=== PATIENT | male | born 2000 | race Two or more races ===

== ENCOUNTER 2020-01-23 06:58 | Emergency (ER) | payer MEDICAID ==
[2020-01-23 07:18] VITALS: BP 138/83
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
[2020-01-23] MEDS ORDERED: IBUPROFEN 600 MG TABLET PO STA (07:28)
[2020-01-23] MEDS ORDERED: ACETAMINOPHEN 325 MG TABLET PO STA (07:28)
[2020-01-23] MEDS ORDERED: LIDOCAINE 2% 50 ML MDV SUBQ STA (07:28)
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
== END 2020-01-23 09:00 | disposition home or self-care (01) ==
LOC: ED 06:58
DX: S62.652A Nondisplaced fracture of middle phalanx of right middle finger, initial encounter for closed fracture (principal); S61.222A Laceration with foreign body of right middle finger without damage to nail, initial encounter; S61.214A Laceration without foreign body of right ring finger without damage to nail, initial encounter; V89.2XXA Person injured in unspecified motor-vehicle accident, traffic, initial encounter
CPT/HCPCS: 12002; 73140; 99283; 99284; A9270

== ENCOUNTER 2020-10-02 16:36 | Emergency (ER) | payer MEDICAID ==
[2020-10-02 17:23] LABS: BASOPHILS # (AUTO) 0.1 10^3/uL (0.0-0.1); BASOPHILS % (AUTO) 0.9 %; EOSINOPHILS # (AUTO) 0.1 10^3/uL (0.0-0.7); HCT - HEMATOCRIT 43.4 % (42.0-52.0); HGB - HEMOGLOBIN 14.5 g/dL (14.0-18.0); LYMPHOCYTES # (AUTO) 2.7 10^3/uL (1.5-3.5); LYMPHOCYTES % (AUTO) 31.7 %; MEAN CORPUSCULAR HEMOGLOBIN 31.2 pg (27.0-31.0); MEAN CORPUSCULAR HGB CONC 33.4 g/dL (32.0-36.0); MEAN CORPUSCULAR VOLUME 93.3 fL (80.0-94.0); MEAN PLATELET VOLUME 9.2 fL (7.4-11.4); MONOCYTES # (AUTO) 0.6 10^3/uL (0.0-1.0); MONOCYTES % (AUTO) 6.4 %; NEUTROPHILS # (AUTO) 5.1 10^3/uL (1.5-6.6); NEUTROPHILS % (AUTO) 59.8 %; PLT - PLATELET COUNT 299 10^3/uL (130-450); RED BLOOD COUNT 4.65 10^6/uL (4.70-6.10); RED CELL DISTRIBUTION WIDTH 11.8 % (12.0-15.0); WHITE BLOOD COUNT 8.6 x10^3/uL (4.8-10.8)
--- NOTE | 2020-10-02 17:27 | XRAY Report ---
PROCEDURE: Chest 1 View X-Ray INDICATIONS: Chest Pain TECHNIQUE: One view of the chest was acquired. COMPARISON: None FINDINGS: Surgical changes and devices: None. Lungs and pleura: No pleural effusions or pneumothorax. Lungs are clear. Mediastinum: Mediastinal contours appear normal. Heart size is normal. Bones and chest wall: No suspicious bony lesions. Overlying soft tissues appear unremarkable. IMPRESSION: No evidence of an acute cardiopulmonary abnormality. Reviewed by: Wallace Gonzáles DO on 10/02/2020 4:26 PM [facility] Approved by: Wallace Gonzáles DO on 10/02/2020 4:26 PM [facility] Station ID: [id number]
[2020-10-02 17:39] LABS: ALBUMIN 4.8 g/dL (3.2-5.5); ALBUMIN/GLOBULIN RATIO 1.4 (1.0-2.2); BILIRUBIN,TOTAL 0.9 mg/dL (0.2-1.0); CALCIUM 9.7 mg/dL (8.5-10.3); CREATININE 0.9 mg/dL (0.6-1.2); POTASSIUM 3.9 mmol/L (3.5-5.0); TOTAL PROTEIN 8.3 g/dL (6.7-8.2)
--- NOTE | 2020-10-02 18:32 | ED Physician Documentation ---
History of Present Illness - Stated complaint Stated Complaint: IRREGULAR HR - Chief complaint Chief Complaint: Cardiac - History obtained from History obtained from: Patient - History of Present Illness Timing: Today Pain level max: 0 Pain level now: 0 - Additonal information Additional information: Patient is a 20-year-old male who presents to the emergency department stating that he has had intermittent palpitations for the past 4 to 5 months. Worsened today. Has not been seen for this. Patient states that he drinks about 10 beers per night after he gets home from work. Denies any significant caffeine intake. No other drug use. Not on any medications. Nothing makes it better work. He is unable to describe the sensation of the palpitations other than his heart feels different. Review of Systems Ten Systems: 10 systems reviewed and negative Constitutional: denies: Fever, Chills Nose: denies: Rhinorrhea / runny nose, Congestion Throat: denies: Sore throat Cardiac: denies: Chest pain / pressure, Calf pain GI: denies: Vomiting, Diarrhea Skin: denies: Rash Musculoskeletal: denies: Neck pain, Back pain Neurologic: denies: Headache PD PAST MEDICAL HISTORY - Past Medical History Cardiovascular: None Respiratory: None Neuro: None Endocrine/Autoimmune: None GI: None : None HEENT: None Psych: None Musculoskeletal: None Derm: None - Past Surgical History Past Surgical History: No - Present Medications Home Medications: Ambulatory Orders Medication Instructions Recorded Confirmed Hydrocodone/Acetaminophen [[place] 1 each PO Q6H PRN #12 tablet 01/23/20 5-325 Tablet] Ibuprofen [Motrin] 600 mg PO TID PRN #25 tab 01/23/20 - Allergies Allergies/Adverse Reactions: Allergies Allergy/AdvReac Type Severity Reaction Status Date / Time No Known Drug Allergies Allergy Verified 10/02/20 16:52 - Social History Does the pt smoke?: Yes Smoking Status: Current every day smoker Does the pt drink ETOH?: Yes Does the pt have substance abuse?: No - Immunizations Immunizations are current?: No Immunizations: TDAP >10years/unknown - POLST Patient has POLST: No PD ED PE NORMAL - Vitals Vital signs reviewed: Yes - General General: Alert and oriented X 3, No acute distress - HEENT HEENT: Moist mucous membranes - Neck Neck: Supple, no meningeal sign - Cardiac Cardiac: RRR, Strong equal pulses - Respiratory Respiratory: No respiratory distress, Clear bilaterally - Abdomen Abdomen: Soft, Non tender, Non distended - Derm Derm: Warm and dry - Extremities Extremities: No edema, No calf tenderness / cord - Neuro Neuro: Alert and oriented X 3 - Psych Psych: Normal mood, Normal affect Results - Vitals Vitals: Vital Signs - 24 hr 10/02/20 10/02/20 10/02/20 16:46 18:41 19:02 Temperature 36.8 C Heart Rate 74 66 89 Respiratory 19 20 18 Rate Blood Pressure 132/70 H 132/83 H 115/60 O2 Saturation 99 100 100 Oxygen O2 Source Room air - EKG (time done) 1811 Rate: Rate (enter#) (55) Rhythm: NSR Holley: Normal Intervals: Normal UT QRS: Normal Ischemia: Normal ST segments - Labs Labs: Laboratory Tests 10/02/20 10/02/20 10/02/20 17:19 17:19 17:19 WBC 8.6 RBC 4.65 L Hgb 14.5 Hct 43.4 MCV 93.3 MCH 31.2 H MCHC 33.4 RDW 11.8 L Plt Count 299 MPV 9.2 Neut # (Auto) 5.1 Lymph # (Auto) 2.7 [place] # (Auto) 0.6 Eos # (Auto) 0.1 Baso # (Auto) 0.1 Absolute Nucleated RBC 0.00 Nucleated RBC % 0.0 Sodium 136 Potassium 3.9 Chloride 99 L Carbon Dioxide 28 Anion Gap 9.0 BUN 12 Creatinine 0.9 Estimated GFR (MDRD) 106 Glucose 100 Calcium 9.7 Total Bilirubin 0.9 AST 19 ALT 20 Alkaline Phosphatase 69 Troponin I High Sens 2.5 Total Protein 8.3 H Albumin 4.8 Globulin 3.5 Albumin/Globulin Ratio 1.4 Lipase 25 - Rads (name of study) cxr Radiology: Prelim report reviewed, EMP read contemporaneously, See rad report (No evidence of an acute cardiopulmonary abnormality. ) PD MEDICAL DECISION MAKING - ED course Complexity details: reviewed results, re-evaluated patient, considered differential, d/w patient ED course: 20-year-old male with palpitations. No evidence of ACS, PE, pneumothorax, hemothorax. No acute findings on laboratory testing, EKG, cardiac surgeon. Asymptomatic here. Possible alcohol related? Recommend that he stop drinking. Resources given. Does not want to go to rehab or detox. Recommend that he follow-up with a primary care provider for a Holter monitor. Patient counseled regarding signs and symptoms for which I believe and urgent re-evaluation would be necessary. Patient with good understanding of and agreement to plan and is comfortable going home at this time This document was made in part using voice recognition software. While efforts are made to proofread this document, sound alike and grammatical errors may occur. Departure - Departure Disposition: 01 Home, Self Care Clinical Impression: Palpitations, Alcohol abuse Condition: Good Instructions: ED Palpitations Follow-Up: Grecia Ibarra MD [Provider Admit Priv/Credential] - Epifanio Marin MD [Provider Admit Priv/Credential] - Pratik Greene MD [Provider Admit Priv/Credential] - Comments: Please follow-up with your primary care provider for further evaluation. They will likely want to place you on a Holter monitor which is a heart monitor that you wear to monitor for any arrhythmias. You should also cut back or stop drinking. Return if you worsen. Discharge Date/Time: 10/02/20 19:02
[2020-10-02 19:04] VITALS: BP 115/60
== END 2020-10-02 19:02 | disposition home or self-care (01) ==
LOC: ED 16:36
DX: R00.2 Palpitations (principal); F10.10 Alcohol abuse, uncomplicated; F17.200 Nicotine dependence, unspecified, uncomplicated
CPT/HCPCS: 36415; 80053; 83690; 84484; 85025; 93005; 99284

== ENCOUNTER 2022-01-24 13:40 | Emergency (ER) | payer MEDICAID ==
[2022-01-24 13:51] VITALS: BP 138/84
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
== END 2022-01-24 15:44 | disposition home or self-care (01) ==
LOC: ED 13:40
DX: S50.02XA Contusion of left elbow, initial encounter (principal); W22.09XA Striking against other stationary object, initial encounter; Y92.009 Unspecified place in unspecified non-institutional (private) residence as the place of occurrence of the external cause; F17.200 Nicotine dependence, unspecified, uncomplicated
CPT/HCPCS: 99281; 99283